=== PATIENT | male | born 1990 | race Caucasian/White ===

== ENCOUNTER 2017-01-02 09:50 | Emergency (ER) | payer SELFPAY ==
[~2017-01-02] VITALS: Ht 167.6 cm; Wt 73.0 kg
[~2017-01-02 09:50] MED LIST: HYOS0.129 SL; LIDO2%S2 PO; OMPR20CCR PO; ZOFR4TAB3 PO
[2017-01-02 09:51] VITALS: BP 133/93; PULSE 96; RESP 24; TEMP 97.8; O2SAT 98
[2017-01-02] MEDS ORDERED: OMEP40CA2 PO (10:01)
[2017-01-02 10:03] VITALS: BP 150/105; PULSE 73; RESP 16; TEMP 98; O2SAT 95
[2017-01-02] MEDS ORDERED: SODIUM CHLOR 0.9% 1000 ML INJ 1,000 ML IV SCH (10:24)
[2017-01-02] MEDS ORDERED: LIDOCAINE VISCOUS 2% SOLN 15 ML UDC PO ONE (10:30)
[2017-01-02] MEDS ORDERED: ALUMINUM/MAGNESIUM/SIMETH 30 ML CUP PO ONE (10:30)
[2017-01-02] MEDS ORDERED: ONDANSETRON HCL 4 MG/2 ML VIAL IVP ONE (10:30)
[2017-01-02] MEDS ORDERED: DICYCLOMINE HCL 20 MG/2 ML VIAL IM ONE (10:30)
[2017-01-02] MEDS ORDERED: SODIUM CHLORIDE 0.9% FLUSH 10 ML FLUSH IV FLUSH PRN (10:30)
[2017-01-02] MEDS ORDERED: PANTOPRAZOLE SODIUM 40 MG VIAL IVP ONE (10:30)
[2017-01-02 10:40] VITALS: O2SAT 100
--- NOTE | 2017-01-02 10:57 | PD ---
HPI Chief Complaint: GI Complaint Time Seen by Provider: 10:17 Travel History International Travel<30 days: No Contact w/Intl Traveler<30days: No Traveled to known affect area: No History of Present Illness HPI Patient is a 26-year-old male comes in complaining of epigastric abdominal pain. He says he has gastritis, and he has been here multiple times for this. He says he needs Dilaudid to take care of his gastritis. He says that he is in a lot of pain, and this is causing him to be nauseous and vomit. He says his last bowel movement was Saturday, and it was normal. He says he has not been able to eat since then. He has appointment with his city planning engineer this afternoon, but he says he does not know if he'll be up and make it. He denies fever or chills. He denies any other symptoms. PFSH Past Medical History Blood Disorders: No Cancer: No Cardiovascular Problems: No Diminished Hearing: No Endocrine: No Gastrointestinal Disorders: Yes (GASTRITIS) GERD: Yes (GASTRITIS) Genitourinary: No Immune Disorder: No Musculoskeletal: No Neurologic: No Psychiatric: No Reproductive: No Respiratory: No Immunizations Current: Yes Past Surgical History Surgical History: No Previous Surgery Pacemaker: No Other Surgery: Yes (UPPER ENDOSCOPY 2010) Social History Alcohol Use: Yes (RARELY) Tobacco Use: No Substance Use: No Allergies-Medications (Allergen,Severity, Reaction): Coded Allergies: Morphine (Verified Adverse Reaction, Mild, ABDOMINAL PAIN, 01/02/17) Reported Meds & Prescriptions Reported Meds & Active Scripts Active Reported Omeprazole 40 Mg Cap 80 Mg PO DAILY Review of Systems Except as stated in HPI: all other systems reviewed are Neg General / Constitutional: No: Fever, Chills HENT: No: Headaches, Lightheadedness Cardiovascular: No: Chest Pain or Discomfort Respiratory: No: Shortness of Breath Gastrointestinal: Positive: Nausea, Vomiting, Abdominal Pain, No: Diarrhea Genitourinary: No: Dysuria Skin: No Rash, No Change in Pigmentation Neurologic: No: Weakness, Dizziness Physical Exam Narrative GENERAL: Awake and alert, in no acute distress. SKIN: Focused skin assessment warm/dry. HEAD: Atraumatic. Normocephalic. EYES: Pupils equal and round. No scleral icterus. ENT: Mucous membranes pink and moist. NECK: Trachea midline. No JVD. CARDIOVASCULAR: Regular rate and rhythm. No murmur appreciated. RESPIRATORY: No accessory muscle use. Clear to auscultation. Breath sounds equal bilaterally. GASTROINTESTINAL: Abdomen soft, nondistended. Tender to palpation of the epigastric area. No rebound or guarding. No CVA tenderness. MUSCULOSKELETAL: No obvious deformities. No clubbing. No cyanosis. No edema. NEUROLOGICAL: Awake and alert. No obvious cranial nerve deficits. Motor grossly within normal limits. Normal speech. PSYCHIATRIC: Appropriate mood and affect; insight and judgment normal. Data Data Last Documented VS Vital Signs Date Time Temp Pulse Resp B/P Pulse Ox O2 Delivery O2 Flow Rate FiO2 01/02/17 10:40 100 Room Air 01/02/17 10:03 98.0 73 16 150/105 Orders Complete Blood Count With Diff (01/02/17 10:24) Comprehensive Metabolic Panel (01/02/17 10:24) Lipase (01/02/17 10:24) Prothrombin Time / Inr (Pt) (01/02/17 10:24) Act Partial Throm Time (Ptt) (01/02/17 10:24) Abdomen, Flat & Upright (01/02/17 ) Iv Access Insert/Monitor (01/02/17 10:24) Ecg Monitoring (01/02/17 10:24) Oximetry (01/02/17 10:24) Ondansetron Inj (Zofran Inj) (01/02/17 10:30) Pantoprazole Inj (Protonix Inj) (01/02/17 10:30) Sodium Chlor 0.9% 1000 Ml Inj (Ns 1000 M (01/02/17 10:24) Sodium Chloride 0.9% Flush (Ns Flush) (01/02/17 10:30) Dicyclomine Inj (Bentyl Inj) (01/02/17 10:30) Al-Mag Hy-Si 40-40-4 Mg/Ml Liq (Mag-Al P (01/02/17 10:30) Lidocaine 2% Viscous (Xylocaine 2% Visco (01/02/17 10:30) MDM Medical Decision Making Medical Screen Exam Complete: Yes Emergency Medical Condition: Yes Medical Record Reviewed: Yes Differential Diagnosis Gastritis versus GERD versus pancreatitis versus cholecystitis Narrative Course Patient is a 26-year-old male comes in complaining of abdominal pain with nausea and vomiting. Exam shows some midepigastric epigastric tenderness, however when distracted, patient does not react as if in pain. Patient is requesting Dilaudid for his gastritis. I explained to him that Dilaudid is not the treatment for gastritis. GI cocktail ordered, Protonix ordered, Bentyl ordered. Labs ordered to check electrolytes, white blood cell count, hemoglobin , and for other signs of abdominal disease. Patient decided he did not want any of this testing done nor the medication. He told the nurse he was going to leave because he "knows what she needs." Patient signed out AMA. He is alert and oriented 4. AMA: The risks of leaving against medical advice without further evaluation treatment were discussed with the patient. These risks include cardiac dysfunction, cardiac dysrhythmia, possible heart attack, possible stroke or . The patient indicated understanding of these risks and appeared to have the capacity to make this decision. Diagnosis Primary Impression: Abdominal pain Qualified Code: R10.13 - Epigastric pain Disposition: 07 AGAINST MEDICAL ADVICE Condition: Stable Kinza Giron MD Jan 02, 2017 10:57
[2017-01-02 11:05] LABS: AUTOMATED NEUTROPHIL # 10.9 TH/MM3 (1.8-7.7); BASOPHIL # 0.1 TH/MM3 (0-0.2); BASOPHIL % 0.6 % (0.0-2.0); HEMATOCRIT 48.9 % (39.0-51.0); HEMO FLAGS DIFF FINAL; LYMPH % 10.3 % (9.0-44.0); LYMPHOCYTE # 1.3 TH/MM3 (1.0-4.8); MEAN CELL VOLUME 90.8 FL (80.0-100.0); MEAN CORPUSCULAR HEMOGLOBIN 30.9 PG (27.0-34.0); MONO % 5.6 % (0.0-8.0); NEUT % 83.5 % (16.0-70.0); PLATELET COUNT 238 TH/MM3 (150-450); RED BLOOD COUNT 5.38 MIL/MM3 (4.50-5.90)
[2017-01-02 11:14] LABS: APTT (PATIENT) 30.5 SEC (24.3-30.1); PROTHROMBIN TIME - PATIENT 11.4 SEC (9.8-11.6)
[2017-01-02 11:26] LABS: ANION GAP 15 MEQ/L (5-15); AST (GOT) 20 U/L (15-37); BICARBONATE 18.9 MEQ/L (21.0-32.0); BLOOD UREA NITROGEN 14 MG/DL (7-18); CHLORIDE 103 MEQ/L (98-107); GLOMERULAR FILTRATION RATE 81 ML/MIN (>89); POTASSIUM 3.9 MEQ/L (3.5-5.1); SODIUM (NA) 137 MEQ/L (136-145)
[2017-01-02 11:30] LABS: ALKALINE PHOSPHATASE 80 U/L (45-117); ALT (GPT) 33 U/L (12-78); TOTAL BILIRUBIN ADULT 1.4 MG/DL (0.2-1.0)
== END 2017-01-02 11:11 | disposition left against medical advice (07) ==
LOC: NEPD 09:50
DX: R10.13 Epigastric pain (principal); R11.2 Nausea with vomiting, unspecified
CPT/HCPCS: 80053; 83690; 85025; 85610; 85730; 96372; 96374; 96375; 99284; C9113; J0500; J2405; J7030